=== PATIENT | male | born 1970 | race Caucasian/White ===

== ENCOUNTER 2022-04-05 10:47 | Inpatient (IN) | payer BC, SELFPAY ==
[~2022-04-05 10:47] MED LIST: Iopamidol 370 76% 100 ML VIAL ONE
[2022-04-05] MEDS ORDERED: Morphine 4 MG/ML VIAL ONE ×2 (10:50→16:23)
[2022-04-05] MEDS ORDERED: Labetalol HCl 100 MG/20 ML VIAL ONE (10:52)
[2022-04-05 11:03] LABS: #Eosinphils 0.2 thou/uL (0.0-0.7); #Monocytes 0.6 thou/uL (0.11-0.59); #Neutrophils 4.6 thou/uL (1.40-6.50); %Basophils 0.4 % (0.0-1.0); %Eosinophils 2.5 % (0.0-10.0); %Lymphocytes 16.1 % (21.0-51.0); %Monocytes 8.8 % (0.0-10.0); %Neutrophils 72.3 % (42.0-75.0); Hemoglobin 19.1 g/dL (14.0-18.0); Mean Corpuscular HGB CONC 33.1 g/dL (32.0-36.0); Mean Corpuscular Hemoglobin 30.4 pg (27.0-31.0); Mean Corpuscular Volume 91.9 fl (78.0-98.0); Mean Platelet Volume 7.4 fL (7.4-10.4); Platelet Count 230 10x3/uL (130-400); RBC Distribution Width 12.9 % (11.5-14.5); Red Blood Cell (RBC) Count 6.28 mill/uL (4.70-6.10); White Blood Cell (WBC) Count 6.4 10x3/uL (4.8-10.8)
[2022-04-05] MEDS ORDERED: Atropine Sulfate 1 mg/10 ml Syringe ONE (11:04)
[2022-04-05] MEDS ORDERED: Lidocaine 1% (PF) 30 ML VIAL ONE (11:17)
[2022-04-05 11:30] LABS: ALT (SGPT) 30 U/L (8-55); AST (SGOT) 24 U/L (5-34); Albumin 5.1 g/dL (3.5-5.0); Alkaline Phosphatase 45 U/L (40-110); Anion Gap 17 mmol/L (10-20); BUN (Urea Nitrogen) 22 mg/dL (8.4-25.7); Bilirubin, Total 0.8 mg/dL (0.2-1.2); Calc. Creatinine Clearance 0 mL/min (70-130); Calcium 9.7 mg/dL (7.8-10.44); Carbon Dioxide 23 mmol/L (22-29); Chloride 97 mmol/L (98-107); Estimated GFR 80; Globulin 3.2 g/dL (2.4-3.5); Glucose 136 mg/dL (70-105); Potassium 5.1 mmol/L (3.5-5.1); Protein, Total 8.3 g/dL (6.0-8.3); Sodium 132 mmol/L (136-145)
[2022-04-05] MEDS ORDERED: Nitroglycerin 100MG/250ML BOT 0 ML ONE (11:42)
[2022-04-05] MEDS ORDERED: Albumin 5% 250 ML ONE (11:45)
[2022-04-05] MEDS ORDERED: Bupivacaine HCl 0.5%/Epinephrine 1:200,000/PF 30 ml Vial ONE (11:46)
[2022-04-05] MEDS ORDERED: Dexamethasone 4 mg/ml Vial ONE (11:46)
[2022-04-05] MEDS ORDERED: fentaNYL PF 100 MCG/2 ML SYRINGE ONE ×3 (11:57→11:59)
[2022-04-05] MEDS ORDERED: Midazolam HCl 2 mg/2 ml Vial ONE (11:58)
[2022-04-05] MEDS ORDERED: CEFAZOLIN 2 GM VIAL ONE (12:04)
[2022-04-05] MEDS ORDERED: Milrinone 10 MG/10 ML VIAL ONE (12:09)
[2022-04-05] MEDS ORDERED: Lidocaine 2% PF 100 mg/5 ml Syringe ONE (12:31)
[2022-04-05] MEDS ORDERED: Norepinephrine 4 MG/4 ML VIAL ONE (12:31)
[2022-04-05] MEDS ORDERED: Papaverine 60 MG/2 ML VIAL ONE (12:31)
[2022-04-05] MEDS ORDERED: Sodium Bicarb 50 MEQ/50 ML Abboject 8.4% SYRINGE ONE (12:31)
[2022-04-05] MEDS ORDERED: Heparin 30,000 units/30 ml VIAL ONE (12:31)
[2022-04-05] MEDS ORDERED: Heparin 5,000 UNITS/ML VIAL ONE (12:31)
[2022-04-05] MEDS ORDERED: PROPOFOL 200 MG/20 ML VIAL ONE (12:31)
[2022-04-05] MEDS ORDERED: Protamine Sulfate 250 MG/25 ML VIAL ONE (12:31)
[2022-04-05] MEDS ORDERED: Vecuronium 10 MG VIAL ONE (12:31)
[2022-04-05] MEDS ORDERED: Calcium Chloride 1 GM/10 ML Abboject SYRINGE ONE (12:31)
[2022-04-05] MEDS ORDERED: EPINEPHrine 1 MG/ML AMP ONE (12:31)
[2022-04-05] MEDS ORDERED: Mannitol 12.5 GM/50 ML ONE (12:31)
[2022-04-05] MEDS ORDERED: Rocuronium Bromide 10 MG/ML (10ML VIAL) ONE (12:31)
[2022-04-05] MEDS ORDERED: Magnesium Sulfate 1 GM/2 ML VIAL ONE (12:31)
[2022-04-05] MEDS ORDERED: Aminocaproic Acid 5 GM/20 ML VIAL ONE (12:31)
[2022-04-05] MEDS ORDERED: Cardioplegic Soln 1,000 ML BAG ONE (12:31)
[2022-04-05] MEDS ORDERED: Thrombin 5000 UNITS/5 ML VIAL ONE (12:31)
[2022-04-05] MEDS ORDERED: Milrinone Lactate/D5W 20 MG in Premix Bag 1 BAG IV SCH (12:45)
[2022-04-05 13:04] LABS: Prothrombin Time 13.1 sec (12.0-14.7)
[2022-04-05 13:05] LABS: PTT 66.4 sec (22.9-36.1)
[2022-04-05 13:22] LABS: Cardiac Risk 7.3 (Less than 4.5)
[2022-04-05] MEDS ORDERED: PHENYLEPHRINE-NS 100 MCG/ML 10 ML SYRINGE ONE ×3 (13:39→14:30)
[2022-04-05] MEDS ORDERED: Midazolam HCl 5 mg/5 ml Vial ONE (13:51)
[2022-04-05 16:31] LABS: ALV-art Gradient 585.275 mmHg (0-20); Actual Bicarbonate (HCO3a) 19.5 mEq/L (22-28); Base Excess (BEa) -8.3 mEq/L (-2.0 to +3.0); CO2 Tension 48.1 mmHg (35.0-45.0); Calcium, Ionized (arterial) 1.18 mmol/L (1.12-1.30); Carboxyhemoglobin (COHb) 0.7 gm% (0.0-3.0); Hemoglobin (Hb) 15.3 g/dL (14.0-18.0); O2 Tension (PaO2), arterial 67.6 mmHg (80.0-100.0); Potassium - ABG Lab 4.88 mmol/L (3.70-5.30); Puncture Site RRA; pH, Arterial 7.23 (7.35-7.45)
[2022-04-05] MEDS ORDERED: Bisacodyl 5 MG TAB PO PRN (16:36)
[2022-04-05] MEDS ORDERED: Post-Op Insulin Drip Protocol IVPB ONE (16:36)
[2022-04-05] MEDS ORDERED: Ondansetron PF 4 MG/2 ML Vial IVP PRN (16:36)
[2022-04-05] MEDS ORDERED: Mag-Al 1200 mg/1200 mg/30 ML UDCUP PO PRN (16:36)
[2022-04-05] MEDS ORDERED: niCARdipine 25 MG in Sodium Chloride 0.9% 250 ML 250 ML IVPB PRN (16:36)
[2022-04-05] MEDS ORDERED: hydrALAZINE 20 MG/ML VIAL SLOW IVP PRN (16:36)
[2022-04-05] MEDS ORDERED: NOREPINEPHRINE 8 MG/250 ML-D5W 250 ML IVPB PRN (16:36)
[2022-04-05] MEDS ORDERED: Hetastarch 6% 500 ML 500 ML IVPB PRN (16:36)
[2022-04-05] MEDS ORDERED: Bisacodyl 10 MG SUPP PR PRN (16:36)
[2022-04-05] MEDS ORDERED: Propofol 1,000 MG/100 ML VIAL IV ONE (16:36)
[2022-04-05] MEDS ORDERED: Guaifenesin DM 100-10/5 ML UDCUP PO PRN (16:36)
[2022-04-05] MEDS ORDERED: Acetaminophen 325 MG TAB PO PRN (16:36)
[2022-04-05] MEDS ORDERED: Potassium Chloride 20 MEQ/100 ML PREMIX BAG IVPB PRN (16:36)
[2022-04-05] MEDS ORDERED: traMADol HCl 50 MG TAB PO PRN ×3 (16:41→20:26)
[2022-04-05] MEDS ORDERED: FENTANYL 50 MCG/ML 1 ML VIAL SLOW IVP PRN ×2 (16:43→16:44)
[2022-04-05] MEDS ORDERED: Morphine 4 MG/ML VIAL SLOW IVP PRN (16:46)
[2022-04-05 16:59] LABS: #Eosinphils 0.2 thou/uL (0.0-0.7); #Lymphocytes 1.8 thou/uL (1.20-3.40); #Monocytes 1.6 thou/uL (0.11-0.59); #Neutrophils 13.6 thou/uL (1.40-6.50); %Basophils 0.1 % (0.0-1.0); %Eosinophils 1.2 % (0.0-10.0); %Lymphocytes 10.5 % (21.0-51.0); %Monocytes 9.2 % (0.0-10.0); Hemoglobin 14.8 g/dL (14.0-18.0); Mean Corpuscular HGB CONC 32.5 g/dL (32.0-36.0); Mean Corpuscular Hemoglobin 30.4 pg (27.0-31.0); Mean Corpuscular Volume 93.8 fl (78.0-98.0); Mean Platelet Volume 7.8 fL (7.4-10.4); Platelet Count 256 10x3/uL (130-400); RBC Distribution Width 12.9 % (11.5-14.5); Red Blood Cell (RBC) Count 4.85 mill/uL (4.70-6.10); White Blood Cell (WBC) Count 17.2 10x3/uL (4.8-10.8)
[2022-04-05 17:07] LABS: INR-International Normal Ratio 1.1; PTT 30.8 sec (22.9-36.1); Prothrombin Time 14.8 sec (12.0-14.7)
[2022-04-05 17:13] LABS: Anion Gap 17 mmol/L (10-20); BUN (Urea Nitrogen) 22 mg/dL (8.4-25.7); Calc. Creatinine Clearance 0 mL/min (70-130); Calcium 8.7 mg/dL (7.8-10.44); Carbon Dioxide 21 mmol/L (22-29); Chloride 102 mmol/L (98-107); Estimated GFR 64; Glucose 212 mg/dL (70-105); Sodium 135 mmol/L (136-145)
[2022-04-05] MEDS ORDERED: Ventilator Sedation Protocol 1 EACH FS SCH (17:30)
[2022-04-05] MEDS ORDERED: Propofol BOLUS 1,000 MG/100 ML VIAL IV PRN (17:45)
[2022-04-05] MEDS ORDERED: Fentanyl BOLUS 250 ML IVPB PRN (17:45)
[2022-04-05] MEDS ORDERED: Midazolam HCl 2 mg/2 ml Vial SLOW IVP PRN (17:45)
[2022-04-05] MEDS ORDERED: EPINEPHrine 4 MG in Dextrose 5% in Water 250 ML IVPB SCH (17:45)
[2022-04-05] MEDS ORDERED: DISCONTINUE PREVIOUS NARCOTIC PAIN MEDICATIONS AND BENZODIAZEPINES FS SCH (17:45)
[2022-04-05] MEDS ORDERED: Fentanyl CADD 100 ML IV SCH (17:45)
[2022-04-05] MEDS: Ketorolac Tromethamine 30 MG/ML VIAL IVP SCH ×2 (17:55→23:53)
[2022-04-05] MEDS: Lactated Ringer's 1,000 ML IV SCH (17:56)
[2022-04-05] MEDS ORDERED: HUMULIN R 100 UNITS in Sodium Chloride 0.9% 100 ML IVPB SCH (18:45)
[2022-04-05] MEDS ORDERED: Insulin Regular 300 UNITS/3 ML VIAL SC PRN (18:45)
[2022-04-05] MEDS ORDERED: Dextrose 50% Abboject 50 ML SYRINGE SLOW IVP PRN (18:45)
[2022-04-05] MEDS ORDERED: Dextrose 5% in Water 1,000 ML IV PRN (18:45)
[2022-04-05] MEDS: Morphine 4 MG/ML VIAL SLOW IVP PRN ×2 (20:00→22:14)
[2022-04-05] MEDS: Famotidine/PF 20 mg/2ml Vial SLOW IVP SCH (20:09)
[2022-04-05] MEDS: CEFAZOLIN 3 GM, Admixture Fee 1 EACH in Sodium Chloride 0.9% 100 ML IVPB SCH (20:32)
[2022-04-05] MEDS ORDERED: Atorvastatin Calcium 20 MG TAB PO SCH (21:00)
[2022-04-05 21:26] LABS: Hemoglobin 15.1 g/dL (14.0-18.0)
[2022-04-05 21:41] LABS: Potassium 4.8 mmol/L (3.5-5.1)
[2022-04-05 21:56] LABS: Troponin I 6.515 ng/mL (< 0.028)
[2022-04-05] MEDS: Propofol 1,000 MG/100 ML VIAL IV PRN (23:50)
[2022-04-06 02:07] LABS: #Lymphocytes 0.6 thou/uL (1.20-3.40); #Monocytes 1.3 thou/uL (0.11-0.59); %Eosinophils 0.1 % (0.0-10.0); %Lymphocytes 6.1 % (21.0-51.0); %Monocytes 12.7 % (0.0-10.0); %Neutrophils 81.1 % (42.0-75.0); Hemoglobin 14.7 g/dL (14.0-18.0); Mean Corpuscular HGB CONC 33.7 g/dL (32.0-36.0); Mean Corpuscular Hemoglobin 31.3 pg (27.0-31.0); Mean Corpuscular Volume 92.7 fl (78.0-98.0); Mean Platelet Volume 7.6 fL (7.4-10.4); Platelet Count 216 10x3/uL (130-400); RBC Distribution Width 12.9 % (11.5-14.5); White Blood Cell (WBC) Count 9.9 10x3/uL (4.8-10.8)
[2022-04-06 02:38] LABS: Troponin I 8.003 ng/mL (< 0.028)
[2022-04-06 02:58] LABS: Anion Gap 13 mmol/L (10-20); BUN (Urea Nitrogen) 18 mg/dL (8.4-25.7); Calc. Creatinine Clearance 211 mL/min (70-130); Calcium 8.5 mg/dL (7.8-10.44); Carbon Dioxide 21 mmol/L (22-29); Chloride 106 mmol/L (98-107); Estimated GFR 95; Glucose 138 mg/dL (70-105); Potassium 4.9 mmol/L (3.5-5.1); Sodium 135 mmol/L (136-145)
[2022-04-06] MEDS: CEFAZOLIN 3 GM, Admixture Fee 1 EACH in Sodium Chloride 0.9% 100 ML IVPB SCH ×2 (05:24→11:38)
[2022-04-06] MEDS: Ketorolac Tromethamine 30 MG/ML VIAL IVP SCH ×3 (05:26→18:04)
[2022-04-06] MEDS: Propofol 1,000 MG/100 ML VIAL IV PRN (05:38)
[2022-04-06 06:37] LABS: SARS-CoV-2 NAA Rapid Test Not Detected (NotDetected)
[2022-04-06] MEDS ORDERED: FLU VACC QS2022-23(6MOS UP)/PF 60 MCG/0.5 ML SYRINGE IM ONE (09:00)
[2022-04-06 09:30] LABS: Critical Call Chem Troponin I RESULT DECREASING; Troponin I 7.325 ng/mL (< 0.028)
[2022-04-06] MEDS: Magnesium 2 GM/50 ML(in water) 2 GM in Premix Bag 1 BAG IVPB SCH (09:32)
[2022-04-06] MEDS: Famotidine/PF 20 mg/2ml Vial SLOW IVP SCH ×2 (09:32→20:20)
[2022-04-06] MEDS: Aspirin 325 MG TAB PO SCH (09:33)
[2022-04-06] MEDS: traMADol HCl 50 MG TAB PO PRN ×2 (11:03→18:48)
[2022-04-06] MEDS: Lactated Ringer's 1,000 ML IV SCH (12:50)
[2022-04-06] MEDS ORDERED: FENTANYL 50 MCG/ML 1 ML VIAL SLOW IVP PRN ×2 (15:53→15:55)
[2022-04-06] MEDS: Atorvastatin Calcium 40 MG TAB PO SCH (20:20)
[2022-04-07] MEDS: Ketorolac Tromethamine 30 MG/ML VIAL IVP SCH ×4 (01:06→17:00)
[2022-04-07 05:13] LABS: #Lymphocytes 1.2 thou/uL (1.20-3.40); #Monocytes 1.3 thou/uL (0.11-0.59); %Basophils 0.2 % (0.0-1.0); %Eosinophils 0.3 % (0.0-10.0); %Lymphocytes 12.9 % (21.0-51.0); %Monocytes 13.5 % (0.0-10.0); %Neutrophils 73.1 % (42.0-75.0); Mean Corpuscular HGB CONC 32.5 g/dL (32.0-36.0); Mean Corpuscular Hemoglobin 30.3 pg (27.0-31.0); Mean Corpuscular Volume 93.4 fl (78.0-98.0); Mean Platelet Volume 7.6 fL (7.4-10.4); Platelet Count 162 10x3/uL (130-400); RBC Distribution Width 13.1 % (11.5-14.5); Red Blood Cell (RBC) Count 4.28 mill/uL (4.70-6.10); White Blood Cell (WBC) Count 9.6 10x3/uL (4.8-10.8)
[2022-04-07 05:16] VITALS: BMI 47.1
[2022-04-07 05:24] LABS: Hemoglobin A1c 5.8 % (4.0-6.0)
[2022-04-07 05:39] LABS: ALT (SGPT) 17 U/L (8-55); AST (SGOT) 35 U/L (5-34); Albumin 3.6 g/dL (3.5-5.0); Alkaline Phosphatase 30 U/L (40-110); Anion Gap 11 mmol/L (10-20); BUN (Urea Nitrogen) 20 mg/dL (8.4-25.7); Bilirubin, Total 1.1 mg/dL (0.2-1.2); Calc. Creatinine Clearance 202 mL/min (70-130); Calcium 8.3 mg/dL (7.8-10.44); Carbon Dioxide 26 mmol/L (22-29); Cardiac Risk 6.1 (Less than 4.5); Chloride 102 mmol/L (98-107); Cholesterol 201 mg/dl (< 200 Desired); Estimated GFR 93; Globulin 2.2 g/dL (2.4-3.5); Glucose 141 mg/dL (70-105); HDL Cholesterol 33 mg/dL (>60 Neg Risk); LDL Cholesterol, Calculated 129 mg/dL; Magnesium 2.2 mg/dL (1.6-2.6); Potassium 4.8 mmol/L (3.5-5.1); Protein, Total 5.8 g/dL (6.0-8.3); Sodium 134 mmol/L (136-145); Triglycerides 195 mg/dL (Less than 150)
[2022-04-07] MEDS: Lactated Ringer's 1,000 ML IV SCH (07:15)
[2022-04-07] MEDS: Magnesium 2 GM/50 ML(in water) 2 GM in Premix Bag 1 BAG IVPB SCH (09:10)
[2022-04-07] MEDS: Famotidine/PF 20 mg/2ml Vial SLOW IVP SCH (09:10)
[2022-04-07] MEDS: Aspirin 325 MG TAB PO SCH (09:10)
[2022-04-07] MEDS ORDERED: Empagliflozin 10 MG TAB PO SCH (10:45)
[2022-04-07] MEDS ORDERED: Mineral Oil ENEMA PR PRN (11:25)
[2022-04-07] MEDS ORDERED: Bisacodyl 10 MG SUPP PR PRN (11:25)
[2022-04-07] MEDS ORDERED: Guaifenesin DM 100-10/5 ML UDCUP PO PRN (11:25)
[2022-04-07] MEDS ORDERED: Mag-Al 1200 mg/1200 mg/30 ML UDCUP PO PRN (11:25)
[2022-04-07] MEDS ORDERED: diphenhydrAMINE 25 MG CAP PO PRN (11:25)
[2022-04-07] MEDS ORDERED: Bisacodyl 5 MG TAB PO PRN (11:25)
[2022-04-07] MEDS ORDERED: Nitroglycerin 0.4 MG TAB (25 Tab Bottle) SL PRN (11:25)
[2022-04-07] MEDS ORDERED: Zolpidem Tartrate 5 MG TAB PO PRN (11:25)
[2022-04-07] MEDS ORDERED: Amiodarone 150 MG, Admixture Fee 1 EACH in Dextrose 5% in Water 100 ML IVPB SCH (14:00)
[2022-04-07] MEDS: Amiodarone 450 MG, Admixture Fee 1 EACH in Dextrose 5% in Water 250 ML IVPB SCH ×2 (14:07→22:27)
[2022-04-07] MEDS ORDERED: Venlafaxine XR 37.5 MG CAP PO SCH (15:30)
[2022-04-07] MEDS ORDERED: Digoxin 0.5 MG/2 ML AMP SLOW IVP SCH (17:30)
[2022-04-07] MEDS: Atorvastatin Calcium 40 MG TAB PO SCH (21:34)
[2022-04-07] MEDS: Famotidine 20 MG TAB PO SCH (21:34)
[2022-04-08] MEDS: Ketorolac Tromethamine 30 MG/ML VIAL IVP SCH ×5 (01:00→23:48)
[2022-04-08] MEDS: Venlafaxine XR 37.5 MG CAP PO SCH (09:12)
[2022-04-08] MEDS: Aspirin 325 mg Enteric Coated Tablet PO SCH (09:12)
[2022-04-08] MEDS: Famotidine 20 MG TAB PO SCH ×2 (09:12→19:34)
[2022-04-08] MEDS: Furosemide 40 MG/4 ML VIAL SLOW IVP SCH (09:13)
[2022-04-08] MEDS: Empagliflozin 10 MG TAB PO SCH (09:13)
[2022-04-08] MEDS: Potassium Chloride 20 MEQ TAB PO SCH (09:13)
[2022-04-08] MEDS: Amiodarone 200 MG TAB PO SCH ×2 (14:42→19:34)
[2022-04-08] MEDS: Atorvastatin Calcium 40 MG TAB PO SCH (19:34)
[2022-04-09 05:05] LABS: %Lymphocytes 20.7 % (21.0-51.0); %Neutrophils 60.6 % (42.0-75.0); Hemoglobin 12.3 g/dL (14.0-18.0); Mean Corpuscular HGB CONC 33.2 g/dL (32.0-36.0); Mean Corpuscular Hemoglobin 30.5 pg (27.0-31.0); Mean Corpuscular Volume 91.7 fl (78.0-98.0); Mean Platelet Volume 7.9 fL (7.4-10.4); Platelet Count 165 10x3/uL (130-400); RBC Distribution Width 12.6 % (11.5-14.5); Red Blood Cell (RBC) Count 4.02 mill/uL (4.70-6.10); White Blood Cell (WBC) Count 5.2 10x3/uL (4.8-10.8)
[2022-04-09 05:06] LABS: #Eosinphils 0.3 thou/uL (0.0-0.7); #Lymphocytes 1.1 thou/uL (1.20-3.40); #Monocytes 0.7 thou/uL (0.11-0.59); #Neutrophils 3.1 thou/uL (1.40-6.50); %Basophils 0.7 % (0.0-1.0); %Eosinophils 5.1 % (0.0-10.0)
[2022-04-09 05:29] LABS: Anion Gap 12 mmol/L (10-20); BUN (Urea Nitrogen) 21 mg/dL (8.4-25.7); Calc. Creatinine Clearance 206 mL/min (70-130); Calcium 8.7 mg/dL (7.8-10.44); Carbon Dioxide 27 mmol/L (22-29); Chloride 102 mmol/L (98-107); Estimated GFR 99; Glucose 118 mg/dL (70-105); Magnesium 2.4 mg/dL (1.6-2.6); Potassium 4.3 mmol/L (3.5-5.1); Sodium 137 mmol/L (136-145)
[2022-04-09] MEDS: Ketorolac Tromethamine 30 MG/ML VIAL IVP SCH ×4 (05:37→23:51)
[2022-04-09] MEDS: Potassium Chloride 20 MEQ TAB PO SCH (09:19)
[2022-04-09] MEDS: Venlafaxine XR 37.5 MG CAP PO SCH (09:22)
[2022-04-09] MEDS: Famotidine 20 MG TAB PO SCH ×2 (09:22→20:20)
[2022-04-09] MEDS: Empagliflozin 10 MG TAB PO SCH (09:23)
[2022-04-09] MEDS: Furosemide 40 MG/4 ML VIAL SLOW IVP SCH (09:23)
[2022-04-09] MEDS: Amiodarone 200 MG TAB PO SCH ×3 (09:23→20:19)
[2022-04-09] MEDS: Aspirin 325 mg Enteric Coated Tablet PO SCH (09:40)
[2022-04-09] MEDS: Atorvastatin Calcium 40 MG TAB PO SCH (20:19)
[2022-04-10] MEDS: Ketorolac Tromethamine 30 MG/ML VIAL IVP SCH ×2 (05:22→12:02)
[2022-04-10 05:26] LABS: Anion Gap 11 mmol/L (10-20); BUN (Urea Nitrogen) 22 mg/dL (8.4-25.7); Calc. Creatinine Clearance 187 mL/min (70-130); Calcium 8.6 mg/dL (7.8-10.44); Carbon Dioxide 29 mmol/L (22-29); Chloride 102 mmol/L (98-107); Estimated GFR 89; Glucose 121 mg/dL (70-105); Magnesium 2.4 mg/dL (1.6-2.6); Potassium 3.9 mmol/L (3.5-5.1); Sodium 138 mmol/L (136-145)
[2022-04-10] MEDS ORDERED: Aspirin 81 mg Enteric Coated Tablet PO SCH (09:00)
[2022-04-10] MEDS ORDERED: Clopidogrel Bisulfate 75 MG TAB PO SCH (09:00)
[2022-04-10] MEDS: Furosemide 40 MG/4 ML VIAL SLOW IVP SCH (09:15)
[2022-04-10] MEDS: Potassium Chloride 20 MEQ TAB PO SCH (09:15)
[2022-04-10] MEDS: Venlafaxine XR 37.5 MG CAP PO SCH (09:15)
[2022-04-10] MEDS: Famotidine 20 MG TAB PO SCH (09:15)
[2022-04-10] MEDS: Amiodarone 200 MG TAB PO SCH (09:15)
[2022-04-10] MEDS: Empagliflozin 10 MG TAB PO SCH (09:16)
[2022-04-10 12:37] VITALS: TEMP 96.9
[2022-04-10 13:16] VITALS: BP 130/96
[2022-04-10 15:09] LABS: Actual Bicarbonate (HCO3a) 21.8 mEq/L (22-28); Analyzer IN Cardio OR; Base Excess (BEa) -5.8 mEq/L (-2.0 to +3.0); CO2 Tension 50.8 mmHg (35.0-45.0); Calcium, Ionized (arterial) 1.15 mmol/L (1.12-1.30); Carboxyhemoglobin (COHb) 0.4 gm% (0.0-3.0); Hemoglobin (Hb) 14.7 g/dL (14.0-18.0); O2 Tension (PaO2), arterial 276.7 mmHg (80.0-100.0); Potassium - ABG Lab 5.32 mmol/L (3.70-5.30); pH, Arterial 7.25 (7.35-7.45)
[2022-04-10 15:09] LABS: Actual Bicarbonate (HCO3a) 20.5 mEq/L (22-28); Analyzer IN Cardio OR; Base Excess (BEa) -6.1 mEq/L (-2.0 to +3.0); CO2 Tension 44.2 mmHg (35.0-45.0); Calcium, Ionized (arterial) 1.34 mmol/L (1.12-1.30); Carboxyhemoglobin (COHb) 0.6 gm% (0.0-3.0); Hemoglobin (Hb) 16.9 g/dL (14.0-18.0); O2 Tension (PaO2), arterial 85.4 mmHg (80.0-100.0); Potassium - ABG Lab 4.78 mmol/L (3.70-5.30); pH, Arterial 7.29 (7.35-7.45)
[2022-04-10 15:09] LABS: Actual Bicarbonate (HCO3a) 20.9 mEq/L (22-28); Analyzer IN Cardio OR; Base Excess (BEa) -3.3 mEq/L (-2.0 to +3.0); CO2 Tension 35.8 mmHg (35.0-45.0); Calcium, Ionized (arterial) 1.05 mmol/L (1.12-1.30); Carboxyhemoglobin (COHb) 0.3 gm% (0.0-3.0); Hemoglobin (Hb) 17.1 g/dL (14.0-18.0); O2 Tension (PaO2), arterial 309.1 mmHg (80.0-100.0); Potassium - ABG Lab 4.48 mmol/L (3.70-5.30); pH, Arterial 7.39 (7.35-7.45)
[2022-04-10 15:10] LABS: Puncture Site Arterial Line
[2022-04-10 15:10] LABS: Actual Bicarbonate (HCO3a) 22.6 mEq/L (22-28); Analyzer IN Cardio OR; Base Excess (BEa) -3.7 mEq/L (-2.0 to +3.0); CO2 Tension 45.9 mmHg (35.0-45.0); Calcium, Ionized (arterial) 1.34 mmol/L (1.12-1.30); Carboxyhemoglobin (COHb) 0.6 gm% (0.0-3.0); Hemoglobin (Hb) 14.2 g/dL (14.0-18.0); O2 Tension (PaO2), arterial 408.9 mmHg (80.0-100.0); Potassium - ABG Lab 5.54 mmol/L (3.70-5.30); pH, Arterial 7.31 (7.35-7.45)
[2022-04-10 15:10] LABS: Actual Bicarbonate (HCO3a) 21.7 mEq/L (22-28); Analyzer IN Cardio OR; Base Excess (BEa) -5.3 mEq/L (-2.0 to +3.0); CO2 Tension 47.6 mmHg (35.0-45.0); Calcium, Ionized (arterial) 1.15 mmol/L (1.12-1.30); Carboxyhemoglobin (COHb) 0.9 gm% (0.0-3.0); Hemoglobin (Hb) 13.9 g/dL (14.0-18.0); O2 Tension (PaO2), arterial 67.3 mmHg (80.0-100.0); Potassium - ABG Lab 5.08 mmol/L (3.70-5.30); pH, Arterial 7.28 (7.35-7.45)
[2022-04-10 15:10] LABS: Puncture Site Arterial Line
[2022-04-10 15:11] LABS: Puncture Site Arterial Line
[2022-04-10 15:11] LABS: Puncture Site Arterial Line
[2022-04-10 15:12] LABS: Puncture Site Arterial Line
== END 2022-04-10 14:30 | disposition home or self-care (01) | DRG 234 ==
LOC: ERS 10:47 → CCL 11:00 → CCU 15:59 → 2NO 04-07 22:48
PROVIDERS: ADMIT Internal Medicine Cardiovascular Disease; ATTEND Internal Medicine Cardiovascular Disease
PROC: 02100Z9 Bypass Coronary Artery, One Artery from Left Internal Mammary, Open Approach (ICD-10-PCS; principal; 2022-04-05)
PROC: 4A023N7 Measurement of Cardiac Sampling and Pressure, Left Heart, Percutaneous Approach (ICD-10-PCS; 2022-04-05)
PROC: 021109W Bypass Coronary Artery, Two Arteries from Aorta with Autologous Venous Tissue, Open Approach (ICD-10-PCS; 2022-04-05)
PROC: 06BQ4ZZ Excision of Left Saphenous Vein, Percutaneous Endoscopic Approach (ICD-10-PCS; 2022-04-05)
PROC: B2151ZZ Fluoroscopy of Left Heart using Low Osmolar Contrast (ICD-10-PCS; 2022-04-05)
PROC: B2111ZZ Fluoroscopy of Multiple Coronary Arteries using Low Osmolar Contrast (ICD-10-PCS; 2022-04-05)
PROC: 02L70ZK Occlusion of Left Atrial Appendage, Open Approach (ICD-10-PCS; 2022-04-05)
PROC: 5A1221Z Performance of Cardiac Output, Continuous (ICD-10-PCS; 2022-04-05)
PROC: 3E033XZ Introduction of Vasopressor into Peripheral Vein, Percutaneous Approach (ICD-10-PCS; 2022-04-05)
DX: I21.19 ST elevation (STEMI) myocardial infarction involving other coronary artery of inferior wall (principal); Z68.42 Body mass index [BMI] 45.0-49.9, adult; I48.92 Unspecified atrial flutter; I47.20 Ventricular tachycardia, unspecified; Z20.822 Contact with and (suspected) exposure to COVID-19; E78.00 Pure hypercholesterolemia, unspecified; I10 Essential (primary) hypertension; E11.9 Type 2 diabetes mellitus without complications; I25.10 Atherosclerotic heart disease of native coronary artery without angina pectoris; E66.01 Morbid (severe) obesity due to excess calories; F17.220 Nicotine dependence, chewing tobacco, uncomplicated; G47.33 Obstructive sleep apnea (adult) (pediatric); I25.5 Ischemic cardiomyopathy; Z79.899 Other long term (current) drug therapy; Z79.82 Long term (current) use of aspirin; Z91.199 Patient's noncompliance with other medical treatment and regimen due to unspecified reason
CPT/HCPCS: 36415; 36416; 36430; 36600; 71045; 80048; 80053; 80061; 82805; 83036; 83735; 84484; 85025; 85347; 85610; 85730; 86850; 86900; 86901; 93005; 93010; 93306; 93458; 93798; 94002; 94003; 94150; 96374; 96375; C1713; C1751; C1760; C1769; C1776; C1894; J0171; J0282; J0461; J0690; J1100; J1160; J1644; J1815; J1885; J1940; J2001; J2150; J2250; J2260; J2270; J2440; J2704; J2720; J3010; J3370; J3475; J3480; J3490; J7070; J7120; P9045; Q9967; S0017; S0028; U0002